=== PATIENT | female | born 1940 | race Caucasian/White ===

== ENCOUNTER 2023-05-05 22:56 | Emergency (ER) | payer MEDICARE ==
[2023-05-06 00:10] LABS: INFLUENZA A NAA NEGATIVE (NEGATIVE); INFLUENZA B NAA NEGATIVE (NEGATIVE); RESPIRATORY SYNCYTIAL VIR NAA NEGATIVE (NEGATIVE)
[2023-05-06 00:14] LABS: CORONAVIRUS COVID-19 NAA POSITIVE (NEGATIVE)
== END 2023-05-06 00:50 | disposition home or self-care (01) ==
LOC: JP.ED 22:56
DX: U07.1 COVID-19 (principal); Z90.710 Acquired absence of both cervix and uterus
CPT/HCPCS: 0241U; 99284

== ENCOUNTER 2023-10-07 05:36 | Emergency (ER) | payer MEDICARE ==
[2023-10-07] MEDS: Acetaminophen 500 MG Tab PO ONE (06:06)
[2023-10-07] MEDS: Metoprolol Succinate 50 MG Tab.ER PO ONE (06:06)
== END 2023-10-07 07:03 | disposition home or self-care (01) ==
LOC: JP.ED 05:36
DX: M17.11 Unilateral primary osteoarthritis, right knee (principal); I10 Essential (primary) hypertension; Z90.710 Acquired absence of both cervix and uterus; Z79.899 Other long term (current) drug therapy
CPT/HCPCS: 73562-26-RT; 73562-RT; 73590-26-RT; 73590-RT; 99284; A9270-GY

== ENCOUNTER 2025-03-07 07:44 | Emergency (ER) | payer MEDICARE ==
[2025-03-07 08:54] LABS: BASOPHILS PERCENT AUTO 0.0 % (0.1-1.3); EOSINOPHILS ABSOLUTE AUTO 0.04 K/uL (0.00-0.40); EOSINOPHILS PERCENT AUTO 0.6 % (0.0-5.4); IMMATURE GRAN ABSOLUTE AUTO 0.05 K/uL (0.00-0.23); IMMATURE GRAN PERCENT AUTO 0.7 % (0.0-0.7); LYMPHOCYTES ABSOLUTE AUTO 1.01 K/uL (0.8-3.3); LYMPHOCYTES PERCENT AUTO 14.2 % (11.4-47.7); MONOCYTES ABSOLUTE AUTO 0.82 K/uL (0.20-0.90); MONOCYTES PERCENT AUTO 11.5 % (3.3-12.6); NEUTROPHILS ABSOLUTE AUTO 5.18 K/uL (1.0-7.6); NEUTROPHILS PERCENT AUTO 73.0 % (40.0-78.1); PLATELET COUNT,PLT 245 K/uL (130-375); RED BLOOD CELL COUNT 4.13 M/uL (3.77-5.24); WHITE BLOOD CELL COUNT,WBC 7.1 K/uL (3.2-11.0)
[2025-03-07 08:55] LABS: BASOPHILS ABSOLUTE AUTO 0.00 K/uL (0.00-0.10)
[2025-03-07 09:16] LABS: A/G RATIO 1.3 (1.2-2.2); ALANINE AMINOTRANSFERASE,ALT 26 U/L (12-78); ASPARTATE AMNIOTRANSFERASE,AST 21 U/L (15-37); BILIRUBIN TOTAL 0.6 mg/dL (0.2-1.0); BLOOD UREA NITROGEN,BUN 27 mg/dL (7-18); CARBON DIOXIDE,CO2 29 mmol/L (21-32); CHLORIDE,CL 103 mmol/L (100-108); CREATININE 0.9 mg/dL (0.6-1.0); ESTIMATED GFR 64 mL/min (>60); GLUCOSE RANDOM 94 mg/dL (74-106); POTASSIUM,K 4.1 mmol/L (3.6-5.2); PROTEIN TOTAL,TP 6.8 g/dL (6.4-8.2); SODIUM,NA 141 mmol/L (140-148)
[2025-03-07 09:39] LABS: APPEARANCE,URINE CLEAR (CLEAR); GLUCOSE,URINE NEGATIVE (NEGATIVE); OCCULT BLOOD,URINE NEGATIVE (NEGATIVE)
[2025-03-07 09:51] LABS: SQUAMOUS EPITHELIAL CELLS,UR RARE /HPF; UROTHELIAL CELLS,URINE NOT SEEN /HPF
[2025-03-07] MEDS: Ketorolac 30 MG/ML SDV IVPUSH ONE (10:07)
[2025-03-07] MEDS: Ondansetron 4 MG/2 ML SDV IVPUSH ONE (14:06)
== END 2025-03-07 17:51 | disposition home or self-care (01) ==
LOC: MERGE 07:44 → JP.ED 07:44
DX: M54.16 Radiculopathy, lumbar region (principal); I10 Essential (primary) hypertension; Z88.8 Allergy status to other drugs, medicaments and biological substances; Z79.899 Other long term (current) drug therapy
CPT/HCPCS: 36415; 70450; 80053; 81001; 84484; 85025; 93005; 96361; 96374; 96375; 96376; 99284; A9270; J2405; J7030; J1171; J1885; J1920

== ENCOUNTER 2025-03-09 10:36 | Inpatient (IN) | payer MEDICARE ==
[2025-03-09] MEDS: Acetaminophen/HYDROcodone 325-5 MG Tab PO ONE (11:57)
[2025-03-09 13:07] LABS: BASOPHILS PERCENT AUTO 0.1 % (0.1-1.3); EOSINOPHILS ABSOLUTE AUTO 0.08 K/uL (0.00-0.40); EOSINOPHILS PERCENT AUTO 1.1 % (0.0-5.4); IMMATURE GRAN ABSOLUTE AUTO 0.03 K/uL (0.00-0.23); IMMATURE GRAN PERCENT AUTO 0.4 % (0.0-0.7); LYMPHOCYTES ABSOLUTE AUTO 0.96 K/uL (0.8-3.3); LYMPHOCYTES PERCENT AUTO 12.6 % (11.4-47.7); MONOCYTES ABSOLUTE AUTO 0.50 K/uL (0.20-0.90); MONOCYTES PERCENT AUTO 6.6 % (3.3-12.6); NEUTROPHILS ABSOLUTE AUTO 6.03 K/uL (1.0-7.6); NEUTROPHILS PERCENT AUTO 79.2 % (40.0-78.1); PLATELET COUNT,PLT 301 K/uL (130-375); RED BLOOD CELL COUNT 4.96 M/uL (3.77-5.24); WHITE BLOOD CELL COUNT,WBC 7.6 K/uL (3.2-11.0)
[2025-03-09 13:08] LABS: BASOPHILS ABSOLUTE AUTO 0.01 K/uL (0.00-0.10)
[2025-03-09] MEDS: Ondansetron 4 MG/2 ML SDV IVPUSH ONE (13:10)
[2025-03-09] MEDS: fentaNYL 50 MCG/ML SDV IVPUSH ONE (13:10)
[2025-03-09] MEDS: LORazepam 2 MG/ML SDV IVPUSH ONE (13:11)
[2025-03-09 13:29] LABS: A/G RATIO 1.2 (1.2-2.2); ALANINE AMINOTRANSFERASE,ALT 24 U/L (12-78); ASPARTATE AMNIOTRANSFERASE,AST 21 U/L (15-37); BILIRUBIN TOTAL 0.9 mg/dL (0.2-1.0); BLOOD UREA NITROGEN,BUN 18 mg/dL (7-18); CARBON DIOXIDE,CO2 27 mmol/L (21-32); CHLORIDE,CL 98 mmol/L (100-108); CREATININE 0.9 mg/dL (0.6-1.0); EST CRCL DRUG DOSING (CG) 45.12 mL/min; ESTIMATED GFR 64 mL/min (>60); GLUCOSE RANDOM 102 mg/dL (74-106); POTASSIUM,K 3.6 mmol/L (3.6-5.2); PROTEIN TOTAL,TP 8.2 g/dL (6.4-8.2); SODIUM,NA 136 mmol/L (140-148)
[2025-03-09] MEDS ORDERED: Sodium Chloride 0.9% 10 ML Syringe FLUSH PRN (17:04)
[2025-03-09] MEDS: Sennosides/Docusate Sodium 50-8.6 MG Tab PO SCH (21:22)
[2025-03-10] MEDS: Dorzolamide/Timolol 2%-0.5% Ophth Soln 10 ML Bottle EYEBOTH SCH (20:37)
[2025-03-11] MEDS: Ondansetron 4 MG Tab.DIS PO PRN (20:15)
[2025-03-12] MEDS: Sennosides/Docusate Sodium 50-8.6 MG Tab PO SCH (20:35)
[2025-03-12] MEDS ORDERED: Sennosides/Docusate Sodium 50-8.6 MG Tab PO SCH (21:00)
[2025-03-17 05:59] LABS: BLOOD UREA NITROGEN,BUN 22.0 mg/dL (7-18); CARBON DIOXIDE,CO2 28.0 mmol/L (21-32); CHLORIDE,CL 100.0 mmol/L (100-108); CREATININE 1.0 mg/dL (0.6-1.0); EST CRCL DRUG DOSING (CG) 43.93 mL/min; ESTIMATED GFR 56.0 mL/min (>60); GLUCOSE RANDOM 92.0 mg/dL (74-106); POTASSIUM,K 3.9 mmol/L (3.6-5.2); SODIUM,NA 135.0 mmol/L (140-148)
[2025-03-18 11:38] VITALS: BP 140/87
[2025-03-18 12:26] VITALS: PULSE 67
== END 2025-03-18 13:16 | disposition home health service (06) | DRG 544 ==
LOC: JP.ED 10:36 → JP.MS 16:24
PROVIDERS: ADMIT Hospitalist; ATTEND Internal Medicine
DX: M48.56XA Collapsed vertebra, not elsewhere classified, lumbar region, initial encounter for fracture (principal); I10 Essential (primary) hypertension; H40.9 Unspecified glaucoma; E78.00 Pure hypercholesterolemia, unspecified; K59.00 Constipation, unspecified; M54.9 Dorsalgia, unspecified; X58.XXXA Exposure to other specified factors, initial encounter; R53.1 Weakness; G89.29 Other chronic pain; M19.90 Unspecified osteoarthritis, unspecified site; Z98.890 Other specified postprocedural states; Z88.8 Allergy status to other drugs, medicaments and biological substances; Z79.899 Other long term (current) drug therapy; Z90.710 Acquired absence of both cervix and uterus
CPT/HCPCS: 36415; 72131; 72131-26; 76377; 80048; 80053; 85025; 86140; 96374; 96375; 97116-GP; 97161-GP; 97166-GO; 97530-GP; 97535-GO; 99223; 99232; 99239; 99284-25; 99285; A9270-GY; J1650; J1920; J2060; J2405; J3010; J7030; Q0162